=== PATIENT | female | born 1970 | race African-American/Black ===

== ENCOUNTER 2023-12-06 12:09 | Emergency (ER) | payer MEDICAID, OTHER ==
[~2023-12-06] VITALS: Ht 172.7 cm; Wt 73.0 kg
[2023-12-06 12:11] VITALS: O2SAT 98
[2023-12-06 12:21] VITALS: BP 144/76; PULSE 78; RESP 18; TEMP 98.9; O2SAT 97
[2023-12-06 13:09] LABS: CLARITY URINE CLEAR (CLEAR); COLOR URINE YELLOW (YELLOW); GLUCOSE URINE NEGATIVE (NEGATIVE); KETONES URINE NEGATIVE (NEGATIVE); LEUKOCYTE ESTERASE URINE 2+ (NEGATIVE); NITRITE URINE NEGATIVE (NEGATIVE); OCCULT BLOOD URINE NEGATIVE (NEGATIVE); PH URINE 6.5 (4.5-8.0); PROTEIN URINE NEGATIVE (NEGATIVE); SPECIFIC GRAVITY URINE 1.009 (1.005-1.030); UROBILINOGEN URINE 0.2 E.U./dL (0.2-1.0)
[2023-12-06 13:42] LABS: SQUAMOUS EPITHELIAL CELL URINE 1+ /lpf (RARE/1+)
[2023-12-06 13:43] LABS: BACTERIA URINE TRACE; MUCUS URINE TRACE /lpf (< = 2+); RBC URINE 0-2 /hpf (0-2); YEAST URINE NONE SEEN
[2023-12-06] MEDS: CEFTRIAXONE SODIUM 500MG VIAL IM ONE (14:24)
[2023-12-06] MEDS: DOXYCYCLINE HYCLATE 100MG CAPSULE PO ONE (14:24)
[2023-12-06] MEDS ORDERED: DOXY100C74 MT (17:01)
[2023-12-06] MEDS ORDERED: METR-167 MT (17:01)
[2023-12-09 04:07] LABS: CHLAMYDIA TRACHOMATIS NAA Negative (Negative); NEISSERIA GONORRHOEAE NAA Negative (Negative)
== END 2023-12-06 14:09 | disposition home or self-care (01) ==
LOC: ER 12:09
DX: N89.8 Other specified noninflammatory disorders of vagina (principal); Z90.710 Acquired absence of both cervix and uterus
CPT/HCPCS: 87491; 87591; 81003; 81025; 87210; 96372; 99284; J0696; Z7610